=== PATIENT | male | born 1945 ===

== ENCOUNTER 2018-01-06 10:55 | Inpatient (IN) | payer OTHER ==
[~2018-01-06] VITALS: Ht 162.6 cm; Wt 81.6 kg
[~2018-01-06 10:55] MED LIST: METFORMIN HCL500 MG; SYNTHROID50 MCG; TENORMIN25 MG
== END 2018-01-13 18:01 | disposition home or self-care (01) | DRG 872 ==
LOC: ER 10:55 → MEDJ 21:44
PROC: 8E0ZXY6 Isolation (ICD-10-PCS; 2018-01-06)
PROC: BW40ZZZ Ultrasonography of Abdomen (ICD-10-PCS; 2018-01-09)
PROC: BW25Y0Z Computerized Tomography (CT Scan) of Chest, Abdomen and Pelvis using Other Contrast, Unenhanced and Enhanced (ICD-10-PCS; 2018-01-10)
PROC: CP1Z1ZZ Planar Nuclear Medicine Imaging of Musculoskeletal System, All using Technetium 99m (Tc-99m) (ICD-10-PCS; principal; 2018-01-11)
DX: A41.9 Sepsis, unspecified organism (principal); N39.0 Urinary tract infection, site not specified; C77.2 Secondary and unspecified malignant neoplasm of intra-abdominal lymph nodes; N13.1 Hydronephrosis with ureteral stricture, not elsewhere classified; E11.9 Type 2 diabetes mellitus without complications; E03.8 Other specified hypothyroidism; C61 Malignant neoplasm of prostate; B96.29 Other Escherichia coli [E. coli] as the cause of diseases classified elsewhere; Z16.12 Extended spectrum beta lactamase (ESBL) resistance

== ENCOUNTER → 2018-03-26 | Emergency (ER) | payer OTHER ==
[~2018-03-26] VITALS: Ht 157.5 cm; Wt 63.5 kg
== END | disposition home or self-care (01) ==
LOC: ER 13:10
DX: R53.1 Weakness (principal); R63.0 Anorexia; C61 Malignant neoplasm of prostate; N39.0 Urinary tract infection, site not specified; B96.29 Other Escherichia coli [E. coli] as the cause of diseases classified elsewhere; T45.1X5S Adverse effect of antineoplastic and immunosuppressive drugs, sequela

== ENCOUNTER 2018-03-28 11:38 | Inpatient (IN) | payer OTHER ==
[~2018-03-28] VITALS: Ht 162.6 cm; Wt 70.3 kg
[2018-04-07] MEDS ORDERED: TENORMIN25 MG PO (17:00)
[2018-04-07] MEDS ORDERED: CLONIDINE HCL0.1 MG PO (17:01)
[2018-04-07] MEDS ORDERED: RESTORIL15 MG PO (17:02)
[2018-04-07] MEDS ORDERED: FAMOTIDINE20 MG PO (17:03)
[2018-04-07] MEDS ORDERED: SYNTHROID50 MCG PO (17:04)
[2018-04-07] MEDS ORDERED: Glucophage PO (17:05)
[2018-04-07] MEDS ORDERED: Ferro-Plex CAPLET PO (17:05)
[2018-04-07] MEDS ORDERED: Intestinex CAP PO (17:05)
== END 2018-04-07 17:31 | disposition home health service (06) | DRG 872 ==
LOC: MEDI 11:38
PROC: BW25ZZZ Computerized Tomography (CT Scan) of Chest, Abdomen and Pelvis (ICD-10-PCS; principal; 2018-03-31)
PROC: 02HV33Z Insertion of Infusion Device into Superior Vena Cava, Percutaneous Approach (ICD-10-PCS; 2018-04-05)
DX: A41.9 Sepsis, unspecified organism (principal); N39.0 Urinary tract infection, site not specified; C77.2 Secondary and unspecified malignant neoplasm of intra-abdominal lymph nodes; C77.1 Secondary and unspecified malignant neoplasm of intrathoracic lymph nodes; C78.02 Secondary malignant neoplasm of left lung; C78.01 Secondary malignant neoplasm of right lung; N13.39 Other hydronephrosis; C61 Malignant neoplasm of prostate; K21.9 Gastro-esophageal reflux disease without esophagitis; I10 Essential (primary) hypertension; E03.8 Other specified hypothyroidism; B96.29 Other Escherichia coli [E. coli] as the cause of diseases classified elsewhere; Z16.12 Extended spectrum beta lactamase (ESBL) resistance; E11.65 Type 2 diabetes mellitus with hyperglycemia

== ENCOUNTER → 2018-05-02 | Emergency (ER) | payer OTHER ==
[~2018-05-02] VITALS: Ht 162.6 cm; Wt 74.8 kg
[~2018-05-02] MED LIST changes: +CATAPRES0.1 MG PO; +CLONIDINE HCL0.1 MG PO; +FAMOTIDINE20 MG PO; +Ferro-Plex CAPLET PO; +Glucophage PO; +Intestinex CAP PO; +RESTORIL15 MG PO; +SYNTHROID50 MCG PO; +TENORMIN25 MG PO
== END | disposition home or self-care (01) ==
LOC: ER 10:52
DX: Z45.2 Encounter for adjustment and management of vascular access device (principal)

== ENCOUNTER 2018-05-16 18:17 | Inpatient (IN) | payer OTHER ==
[~2018-05-16] VITALS: Ht 162.6 cm; Wt 74.8 kg
[2018-05-20] MEDS ORDERED: LEVAQUIN500 MG PO (15:39)
[2018-05-20] MEDS ORDERED: INTESTINEX680 M1 PO (15:47)
== END 2018-05-20 16:00 | disposition home or self-care (01) | DRG 872 ==
LOC: ER 18:17 → SEC-K 05-17 08:41 → SURH 05-17 08:41
PROC: 8E0ZXY6 Isolation (ICD-10-PCS; principal; 2018-05-17)
DX: A41.9 Sepsis, unspecified organism (principal); N39.0 Urinary tract infection, site not specified; C77.2 Secondary and unspecified malignant neoplasm of intra-abdominal lymph nodes; C77.1 Secondary and unspecified malignant neoplasm of intrathoracic lymph nodes; E11.65 Type 2 diabetes mellitus with hyperglycemia; I10 Essential (primary) hypertension; E03.8 Other specified hypothyroidism; Z92.21 Personal history of antineoplastic chemotherapy; C61 Malignant neoplasm of prostate; K29.00 Acute gastritis without bleeding; B96.1 Klebsiella pneumoniae [K. pneumoniae] as the cause of diseases classified elsewhere; D63.0 Anemia in neoplastic disease; K52.89 Other specified noninfective gastroenteritis and colitis

== ENCOUNTER 2018-06-08 04:59 | Emergency (ER) | payer OTHER ==
[~2018-06-08] VITALS: Ht 162.6 cm; Wt 72.6 kg
[~2018-06-08 04:59] MED LIST changes: +INTESTINEX680 M1 PO; +LEVAQUIN500 MG PO
== END 2018-06-08 08:36 | disposition home or self-care (01) ==
LOC: ER 04:59
DX: R33.8 Other retention of urine (principal); N39.0 Urinary tract infection, site not specified; B96.29 Other Escherichia coli [E. coli] as the cause of diseases classified elsewhere

== ENCOUNTER 2018-06-09 15:00 | Inpatient (IN) | payer OTHER ==
[~2018-06-09] VITALS: Ht 162.6 cm; Wt 72.6 kg
[2018-06-16] MEDS ORDERED: RESTORIL15 MG PO (09:38)
[2018-06-16] MEDS ORDERED: SYNTHROID50 MCG PO (09:38)
[2018-06-16] MEDS ORDERED: METFORMIN HCL500 MG PO (09:39)
[2018-06-16] MEDS ORDERED: Intestinex CAP PO (09:39)
== END 2018-06-16 13:45 | disposition home or self-care (01) | DRG 689 ==
LOC: ER 15:00 → SURH 19:27 → MEDJ 19:27 → SURH 06-10 01:49
PROC: 4A033R1 Measurement of Arterial Saturation, Peripheral, Percutaneous Approach (ICD-10-PCS; principal; 2018-06-09)
PROC: 8E0ZXY6 Isolation (ICD-10-PCS; 2018-06-10)
DX: N39.0 Urinary tract infection, site not specified (principal); A41.9 Sepsis, unspecified organism; C77.2 Secondary and unspecified malignant neoplasm of intra-abdominal lymph nodes; C77.1 Secondary and unspecified malignant neoplasm of intrathoracic lymph nodes; C78.01 Secondary malignant neoplasm of right lung; C78.02 Secondary malignant neoplasm of left lung; K29.00 Acute gastritis without bleeding; R33.8 Other retention of urine; C61 Malignant neoplasm of prostate; I10 Essential (primary) hypertension; E03.8 Other specified hypothyroidism; E11.9 Type 2 diabetes mellitus without complications; D63.0 Anemia in neoplastic disease; N13.39 Other hydronephrosis; Z16.12 Extended spectrum beta lactamase (ESBL) resistance

== ENCOUNTER 2018-07-12 09:51 | Day surgery (SDC) | payer OTHER ==
[~2018-07-12 09:51] MED LIST changes: +ATENOLOL25 MG PO; +METFORMIN HCL500 MG PO; +PEPCID AC20 MG PO
== END 2018-07-12 18:20 | disposition home or self-care (01) ==
LOC: CIR.AMB 09:51
DX: R33.8 Other retention of urine (principal)

== ENCOUNTER 2018-07-21 04:21 | Emergency (ER) | payer OTHER ==
[~2018-07-21] VITALS: Ht 162.6 cm; Wt 74.8 kg
== END 2018-07-21 12:00 | disposition home or self-care (01) ==
LOC: ER 04:21
DX: N39.0 Urinary tract infection, site not specified (principal); B96.5 Pseudomonas (aeruginosa) (mallei) (pseudomallei) as the cause of diseases classified elsewhere

== ENCOUNTER 2021-12-07 18:06 | Inpatient (IN) | payer OTHER ==
[~2021-12-07] VITALS: Ht 162.6 cm; Wt 65.8 kg
[2021-12-07] MEDS ORDERED: ZYTIGA250 MG PO (18:12)
[2021-12-07] MEDS ORDERED: SYNTHROID75 MCG PO (18:12)
[2021-12-07] MEDS ORDERED: ERLEADA60 MG PO (18:29)
[2021-12-15] MEDS ORDERED: ATENOLOL25 MG PO (18:50)
[2021-12-15] MEDS ORDERED: CLONAZEPAM1 MG PO (18:50)
[2021-12-15] MEDS ORDERED: OXYC1TAB9 PO (18:51)
[2021-12-15] MEDS ORDERED: LEVOTHYROXINE25 MCG PO (18:52)
[2021-12-15] MEDS ORDERED: FAMOTIDINE20 MG PO (18:52)
[2021-12-15] MEDS ORDERED: Ferro-Plex CAPLET PO (18:53)
[2021-12-15] MEDS ORDERED: PROTEINEX-18 LI30 ML PO (18:53)
== END 2021-12-15 22:19 | disposition home or self-care (01) | DRG 812 ==
LOC: ER 18:06 → SURH 20:40 → MEDI 12-08 09:00
PROVIDERS: ADMIT Internal Medicine Hematology & Oncology; ATTEND Internal Medicine Hematology & Oncology
PROC: 4A12X4Z Monitoring of Cardiac Electrical Activity, External Approach (ICD-10-PCS; 2021-12-08)
PROC: 02HV33Z Insertion of Infusion Device into Superior Vena Cava, Percutaneous Approach (ICD-10-PCS; 2021-12-09)
PROC: 30233N1 Transfusion of Nonautologous Red Blood Cells into Peripheral Vein, Percutaneous Approach (ICD-10-PCS; 2021-12-10)
PROC: 0T9130Z Drainage of Left Kidney with Drainage Device, Percutaneous Approach (ICD-10-PCS; principal; 2021-12-12)
DX: D64.9 Anemia, unspecified (principal); N17.8 Other acute kidney failure; E87.2 Acidosis; N13.39 Other hydronephrosis; N39.0 Urinary tract infection, site not specified; C79.82 Secondary malignant neoplasm of genital organs; C61 Malignant neoplasm of prostate; R31.0 Gross hematuria; D63.1 Anemia in chronic kidney disease; E86.0 Dehydration; E87.8 Other disorders of electrolyte and fluid balance, not elsewhere classified; B96.4 Proteus (mirabilis) (morganii) as the cause of diseases classified elsewhere; D69.6 Thrombocytopenia, unspecified; Z79.4 Long term (current) use of insulin; E03.8 Other specified hypothyroidism; I12.9 Hypertensive chronic kidney disease with stage 1 through stage 4 chronic kidney disease, or unspecified chronic kidney disease; E11.22 Type 2 diabetes mellitus with diabetic chronic kidney disease; N18.30 Chronic kidney disease, stage 3 unspecified; Z20.822 Contact with and (suspected) exposure to COVID-19; E11.65 Type 2 diabetes mellitus with hyperglycemia